=== PATIENT | male | born 1955 | race Caucasian/White ===

== ENCOUNTER 2018-02-10 05:51 | Day surgery (SDC) | payer BC ==
--- NOTE | 2018-01-30 08:28 | HP ---
PREOPERATIVE HISTORY AND PHYSICAL: DATE OF ADMISSION/SURGERY: 02/10/18 DATE OF OFFICE VISIT: 01/26/18 ATTENDING SURGEON: Masoud Vincent MD * (DICTATED BY SYLVAIN LEBLANC) PROCEDURE: Left shoulder MRI under anesthesia. CHIEF COMPLAINT: Left shoulder pain. HISTORY OF PRESENT ILLNESS: Castro is a 62-year-old male who presents to the clinic for left shoulder pain. There is a concern for rotator cuff triple repair and the patient requires an MRI; however, he is claustrophobic and is unable to have an MRI with valium. Therefore, he requires an MRI under anesthesia of the left shoulder that will be performed on 02/10/18. PAST MEDICAL HISTORY: Hypertension, gout, arthritis. PAST SURGICAL HISTORY: Three shoulder surgeries between the 2 shoulders, 3 carpal tunnel surgeries, 1 wrist surgery, 2 hand surgeries, tonsillectomy. The patient denies prior complications with anesthesia. MEDICATIONS: 1. . 2. Allopurinol 100 mg 1 by mouth every day. 3. Amlodipine besylate 5 mg every day. 4. Tumeric 1 by mouth every day. 5. Vitamin D 1000 units twice daily. 6. Aspirin 81 mg 1 by mouth daily. 7. Fish oil 1200 mg 1 twice daily. 8. Multivitamin 1 daily. 9. Naproxen 500 mg 1 by mouth with food twice daily. 10. Alfuzosin 10 mg daily. 11. Lisinopril/hydrochlorothiazide 20/25 one by mouth every day. FAMILY HISTORY: Positive for diabetes and cancer. SOCIAL HISTORY: He lives with his spouse. He drives a school bus. He quit smoking 33 years ago, he is a former. He reports occasional alcohol consumption. He is right-hand dominant. REVIEW OF SYSTEMS: A 14-point review of systems was reviewed with the patient. Positive for current complaint, otherwise negative. He denies fever, chills, dyspnea, shortness of breath, history of DVT or PE, history of bleeding disorder. He does not have a spinal stimulator or a pacemaker. PHYSICAL EXAMINATION GENERAL: A 62-year-old well-developed, well-nourished male, in no acute distress. Alert and oriented x3. Appropriate mood and affect. Appropriate balance and coordination of all 4 extremities. VITAL SIGNS: Height 72, weight 327, pulse 74, blood pressure 136/78, respiratory rate 12, BMI 44.3. HEENT: Normocephalic, atraumatic. PERRLA. Throat clear. NECK: Supple. PULMONARY: Lungs are clear to auscultation bilaterally. No wheezing, rhonchi, or rales. CARDIO: Regular rate and rhythm. S1, S2. No murmurs, gallops, or rubs. No edema. ABDOMEN: Positive bowel sounds. Soft, nontender. NEURO: Alert and oriented x3. Cranial nerves grossly intact. Sensation is intact to light touch distally. MUSCULOSKELETAL: Left upper extremity, skin is intact. Forward flexion to 150 , abduction to 140, external rotation to 30, internal rotation to T12. +5/5 strength to rotator cuff testing with pain. Positive impingement, [place]eds, [place]Carl[place], [place]. +2 radial pulse. Sensation is intact to light touch distally. DIAGNOSTIC STUDIES: Multi-view x-rays of the left shoulder reveals advanced glenohumeral [id number] arthritis. IMPRESSION AND PLAN: The patient is scheduled to undergo a left shoulder MRI under anesthesia because he is not able to have an MRI with valium. He is too claustrophobic and has severe anxiety. The MRI is to rule out a rotator cuff injury. He is scheduled to have this on 02/10/18 and will follow up with Dr. Vincent after the MRI to review results and treatment options. SYLVAIN LEBLANC [id number]/[facility] [place] #: [id number] JLUIS
[~2018-02-10 05:51] MED LIST: Buffered Lidocaine 0.9% SYRIN* 5 ML/SYR SYRINGE INTRADERM ONE
[2018-02-10] MEDS ORDERED: Dexamethasone IV* 4 MG/ML 1 ML (4 MG) IV SLOW PU ONE (06:00)
[2018-02-10] MEDS ORDERED: Famotidine IV* 10 MG/ML 2 ML (20 mg) IV ONE (06:00)
[2018-02-10] MEDS ORDERED: Midazolam* 1 MG/ML 2 ML VIAL (2 MG) ONE (06:22)
[2018-02-10] MEDS ORDERED: fentaNYL* 50 MCG/ML 2 ML VIAL (100 MCG VIAL) ONE (06:22)
[2018-02-10] MEDS ORDERED: Dexamethasone IV* 4 MG/ML 1 ML (4 MG) ONE (06:36)
[2018-02-10] MEDS ORDERED: Famotidine IV* 10 MG/ML 2 ML (20 mg) ONE (06:36)
[2018-02-10] MEDS ORDERED: Ondansetron INJ* 2 MG/ML VIAL IV PRN (07:56)
[2018-02-10] MEDS ORDERED: DiMENhydriNATE IV* 50 MG/ML VIAL IV PUSH PRN (07:56)
[2018-02-10] MEDS ORDERED: Naloxone* 0.4 MG/ML 1 ML VIAL IV PRN (07:56)
[2018-02-10 07:57] VITALS: BP 149/88
[2018-02-10] MEDS ORDERED: Propofol* 10 MG/ML 20 ML BTL IV PUSH ONE ×2 (07:59)
[2018-02-10] MEDS ORDERED: Phenylephrine INJ* 10 MG/ML 1 ML VIAL (10 MG) ONE (07:59)
[2018-02-10] MEDS ORDERED: Succinylcholine* 20 MG/ML 10 ML VIAL ONE (07:59)
--- NOTE | 2018-02-10 09:47 | RAD ---
INDICATION: Left shoulder pain, osteoarthritis. Imaging sequences: Coronal proton density, T2, fat-sat T2 weighted images of the shoulder were obtained. Sagittal T1, T2 fat sat images of the shoulder were obtained. Axial proton density fat sat images were also obtained. The supraspinatus muscle and tendon demonstrate thickening and mild increased signal consistent with tendinosis. Focus area of increased signal is noted at the insertion of the supraspinatus tendon consistent with an intrasubstance tear at the footprint. Infraspinatus and subscapularis muscle and tendon are grossly intact. Moderate-sized joint effusion is noted. There are degenerative changes of the glenohumeral joint noted. Intra-articular loose bodies may be present. There may be fluid in the subcoracoid bursa. Fluid is present along the biceps tendon groove consistent with tenosynovitis. IMPRESSION: Degenerative changes of the glenohumeral joint. Osteophyte formation is noted. There is suggestion of some loose bodies noted within the joint space. A small joint effusion is noted. Tendinosis of the distal supraspinatus tendon. There may be an intrasubstance tear at the footprint of the supraspinatus tendon.
== END 2018-02-10 08:33 | disposition home or self-care (01) ==
LOC: OR 05:51
PROVIDERS: ATTEND Orthopaedic Surgery
DX: M19.012 Primary osteoarthritis, left shoulder (principal); F40.240 Claustrophobia; M25.512 Pain in left shoulder; I10 Essential (primary) hypertension; M10.9 Gout, unspecified; Z87.891 Personal history of nicotine dependence
CPT/HCPCS: J0330; J1100; J2250; J2704; J3010

== ENCOUNTER → 2018-08-07 06:46 | Day surgery (SDC) | payer BC ==
--- NOTE | 2018-08-06 20:54 | HP ---
PREOPERATIVE HISTORY AND PHYSICAL: DATE OF ADMISSION/SURGERY: 08/07/18 DATE OF OFFICE VISIT: 08/01/18 ATTENDING PROVIDER: Masoud Vincent MD * (DICTATED BY SYLVAIN LEBLANC) PROCEDURE: Left shoulder arthroscopic possible rotator cuff repair, decompression, debridement, and possible subpectoral biceps tenodesis. CHIEF COMPLAINT: Left shoulder pain. HISTORY OF PRESENT ILLNESS: Castro is a 63-year-old male who presents to the clinic for left shoulder pain due to a rotator cuff tear and biceps tendinitis. He has failed conservative measures and therefore agreed to undergo a left total shoulder arthroscopic possible rotator cuff repair, decompression, debridement, and possible subpectoral biceps tenodesis with Dr. Vincent on . PAST MEDICAL HISTORY: 1. Hypertension. 2. Gout. 3. Osteoarthritis. 4. Recent sinus infection. 5. Obstructive sleep apnea. 6. High cholesterol. PAST SURGICAL HISTORY: 1. Three shoulder surgeries between the bilateral shoulders. 2. Two carpal tunnel releases on the right and 1 on the left. 3. One left wrist surgery. 4. Cubital tunnel release. 5. Two tendon hand surgeries. 6. Tonsillectomy. 7. Vasectomy. The patient denies prior complications with anesthesia. MEDICATIONS: 1. Aspirin 81 mg 1 tab daily. 2. Fish oil 1200 mg 1 by mouth twice a day. 3. Vitamin D 1000 units twice a day. 4. Tumeric 1 a day. 5. Multivitamin 1 by mouth every day. 6. Alfuzosin 10 mg 1 daily. 7. Gabapentin 300 mg 1 tab twice a day. 8. Glucosamine/chondroitin 750/600 2 times a day. 9. Doxycycline 100 mg 1 every 12 hours. 10. Allopurinol 100 mg 1 by mouth every day. 11. Amlodipine 5 mg 1 by mouth every day. 12. Lisinopril/hydrochlorothiazide 20/25 1 tab by mouth every day. ALLERGIES: No known drug allergies. FAMILY HISTORY: Positive for diabetes and cancer. SOCIAL HISTORY: His lives with his spouse. He is a former smoker, quit in 1984. He drinks alcohol socially. He exercises occasionally. He is right-hand dominant. REVIEW OF SYSTEMS: A 14-point review of systems was reviewed with the patient. Positive for current complaint, otherwise negative. Denies fevers, chills, chest pain, shortness of breath, history of DVT or PE, history of bleeding disorder. PHYSICAL EXAMINATION GENERAL: A 63-year-old well-developed, well-nourished male, in no acute distress. VITAL SIGNS: Height 72, weight 310. Pulse 96, blood pressure 158/78, respiratory rate 16, temperature 98.0. BMI of 42.0. HEENT: Normocephalic, atraumatic. PERRLA. Throat: Clear. NECK: Supple. PULMONARY: Lungs are clear to auscultation bilaterally. No wheezing, rhonchi, or rales. CARDIO: Regular rate and rhythm. S1, S2. No murmurs, gallops, or rubs. No edema. ABDOMEN: Positive bowel sounds, soft, nontender. NEURO: Alert and oriented x3. Cranial nerves grossly intact. MUSCULOSKELETAL: Left upper extremity, skin is intact. No warmth or erythema. Tenderness over the biceps tendon. Forward flexion, abduction 170, external rotation 45, internal rotation to lumbar spine. Full range of motion . + 2 radial pulse. Sensation is intact to light touch distally. Right upper extremity, skin is intact. No warmth or erythema. Nontender to palpation. Full range of motion. Neurovascularly intact. DIAGNOSTIC STUDIES: MRI of the left shoulder revealed no full thickness tear of the rotator cuff, but there may be some partial thickness tearing, fluid around the biceps and significant osteoarthritis. IMPRESSION: Left shoulder partial rotator cuff tear, biceps tendinitis, and glenohumeral joint osteoarthritis. PLAN: The patient is scheduled to undergo a left shoulder arthroscopic possible rotator cuff repair, decompression, debridement, and possible subpectoral biceps tenodesis with Dr. Vincent on 08/07/18. Percocet will be used for postop pain management. He will follow up 10 to 14 days postop for followup and suture removal. SYLVAIN LEBLANC [id number]/[facility] #: [id number] MTDD
[~2018-08-07 06:46] MED LIST changes: +Acetaminophen TAB* 325 MG ONE; +Acetaminophen TAB* 325 MG PO ONE; +Acetaminophen TAB* 325 MG PO PRN; -Buffered Lidocaine 0.9% SYRIN* 5 ML/SYR SYRINGE INTRADERM ONE; +Buffered Lidocaine 1% SYRIN* 1 ML/SYRINGE INTRADERM ONE; +Bupivacaine 0.25% SDV* 30 ML ONE; +Dexamethasone IV* 4 MG/ML 1 ML (4 MG) IV SLOW PU ONE; +Dexamethasone IV* 4 MG/ML 1 ML (4 MG) ONE; +DiMENhydriNATE IV* 50 MG/ML VIAL IV PUSH PRN; +DiMENhydriNATE IV* 50 MG/ML VIAL ONE; +EPHEDrine (Pressors)* 50 MG/ML VIAL ONE; +Famotidine IV* 10 MG/ML 2 ML (20 mg) ONE; +Famotidine TAB* 20 MG ONE; +Famotidine TAB* 20 MG PO ONE; +Gabapentin CAP(*) 300 MG ONE; +Gabapentin CAP(*) 300 MG PO ONE; +Ketorolac INJ* 30 MG/ML 1 ML VIAL IV PRN; +Lactated Ringers 1000 ML Bag* 1,000 ML IV SCH; +Lidocaine 1%* 5 ML VIAL ONE; +Midazolam* 1 MG/ML 2 ML VIAL (2 MG) ONE; +Naloxone* 0.4 MG/ML 1 ML VIAL IV PRN; +Ondansetron INJ* 2 MG/ML VIAL IV ONE; +Ondansetron INJ* 2 MG/ML VIAL ONE; +PROCHLORPERAZINE INJ 5 MG/ML 2 ML VIAL ONE; +Propofol* 10 MG/ML 20 ML BTL ONE; +ROPIVACAINE 5 MG/ML 30 ML BTL (0.5%) ONE; +Rocuronium* 10 MG/ML VIAL ONE; +Scopolamine 1.5 mg* PATCH ONE; +Scopolamine 1.5 mg* PATCH TRANSDERM SCH; +Succinylcholine* 20 MG/ML 10 ML VIAL ONE; +ceFAZolin 2 GM in NS PREMIX(*) 2 GM/100 ML BAG IVPB ONE; +ceFAZolin VIAL(*) VIAL ONE; +celeCOXIB CAP* 100 MG ONE; +celeCOXIB CAP* 200 MG PO ONE; +fentaNYL* 50 MCG/ML 2 ML VIAL (100 MCG VIAL) IV PRN; +fentaNYL* 50 MCG/ML 2 ML VIAL (100 MCG VIAL) ONE; +oxyCODONE/Acetamin 5/325 MG* TAB PO PRN
[2018-08-07 15:14] VITALS: BP 138/78
--- NOTE | 2018-08-08 02:41 | OP ---
DATE OF OPERATION: 08/07/18 - [facility] DATE OF : 57 SURGEON: Masoud Vincent MD. ASSISTANTS: 1. SYLVAIN Chandra. An habilitation assistant was needed for the entirety of the case for positioning, retraction, and utilized throughout all portions of the case. 2. SHERINE Roque student. PRE-OP DIAGNOSIS: Left shoulder osteoarthritis with bicipital tendonitis. POST-OP DIAGNOSES: 1. Left shoulder osteoarthritis with bicipital tendonitis. 2. Loose body and partial thickness tear of the rotator cuff. OPERATIVE PROCEDURE: Left shoulder arthroscopy with: 1. Extensive glenohumeral debridement. 2. Subacromial decompression with acromioplasty. 3. Rotator cuff repair using Regeneten patch. 4. Removal of loose body 1 cm in length. 5. Open biceps tenodesis. COMPLICATIONS: None. ESTIMATED BLOOD LOSS: Minimal. IMPLANTS USED: One [employer] Q-Fix 2.8 mm and 1 medium size Regeneten patch. INDICATIONS: Castro Ibrahim is a 63-year-old male with osteoarthritis of his shoulder. He has failed conservative management. We talked about the options including total shoulder. He does have a partial thickness tear of the rotator cuff, which is where lot of his pain is coming from. It is important thus to have normal rotator cuff prior to proceeding with any surgical treatment. He does know that he is going to have a replacement, but we have discussed different options such as arthroscopy with debridement and evaluation of rotator cuff as well as biceps tenodesis. He is elected to proceed with surgical treatment. He underwent medical risk pre-optimization and was stabilized for surgery. After risks and benefits were discussed at length including but not limited to bleeding, infection, damage to nerves, vessels, surrounding structures, wound nonhealing, persistent pain, need for further surgery, scarring, stiffness, incomplete relief of symptoms, risks of anesthesia , risk of DVT. He is elected to proceed with surgical treatment. DESCRIPTION OF PROCEDURE: The patient was greeted in the preoperative area by the attending surgeon. Correct extremity was marked and consent was confirmed. The patient underwent interscalene nerve block by the anesthesiologist after which he was placed brought back to the operating suite, where he was placed in the right lateral decubitus position. All bony prominences were padded. He was secured with pegboard. An axillary roll was placed. The left arm was draped unsterile with 10 pounds of traction. The left shoulder was then prepped and draped in the usual sterile fashion beginning with chlorhexidine soap, scrub, and alcohol wipe and a final prep of ChloraPrep. After appropriate surgical pause indicating site, side, procedure, and administration of antibiotics, the standard postero-lateral portal was made sharply with 11 blade. The scope was introduced into the joint. The joint was examined. There were grade 4 changes of the glenohumeral joint. There was unstable fraying of the anterior, posterior, and superior labrum. The biceps obviously was subluxed and torn. It was then tenotomized after the anterior canal was made. Shaver was used to debride the anterior, posterior, and superior labrum. There was a loose body trapped with the biceps and taken down with the biceps tendon and later determined in the open portion of the case. The undersurface of the rotator cuff had partial thickness tearing. The subscap was found to be intact. Once the debridement was completed, attention was directed to the subacromial space. With the scope positioned in the subacromial space, the lateral portal was made in an outside-in fashion. Shaver was used to debride back the abundant bursa that was present. The undersurface of the acromion was skeletonized and then a 4 -0 oval indu was used to do an acromioplasty. All loose fluid debris was removed at this point. Attention was then directed to the cuff. The dorsal side of the cuff was looked to be intact. There was no evidence of full thickness tearing. Incision was made because he is a candidate for shoulder replacement and the cuff was not perfect, we had to do a Regeneten patch to allow for healing of the rotator cuff. The size medium patch was then brought to the field and then placed under arthroscopic visualization. It was then secured with tendon jerri medially and then bone jerri laterally, after which it was checked for range of motion and was found to be well secured. After this portion was completed, attention was directed to the biceps. The bed was air planed to the left side. The anterior aspect of the shoulder was prepped again and a 15 blade was used to make an incision. The soft tissues were carefully dissected to expose the pec fascia. Once the remainder of resection was done bluntly, the soft tissues were carefully dissected to expose the biceps groove. The biceps was brought through the wound. A loose body was removed approximately 1 cm in diameter. The bicipital groove was prepared in the usual fashion with electrocautery device, red ball rasp, and osteotome. The Q-Fix drill guide was then drilled unicortically and Q-Fix was deployed with excellent purchase. The sutures were then passed through the tendon approximately 1 cm proximal to the musculotendinous junction in Guzman-Parker type configuration. Excess stump was excised and the biceps shuttled back to the wound. It was then secured. The wounds were copiously irrigated with sterile saline. The skin was closed in layers with 3-0 Monocryl. The portal closed with 3-0 nylon. Sterile dressings were applied. A Cryo/Cuff and UltraSling were applied. He was awoken from anesthesia, transferred to PACU in stable condition. POSTOPERATIVE PLAN: Throughout the case, he had PVCs, but was found to be stable. We will CC a copy to his Pricing Manager as well as his PCP so they could follow this up. The anesthesiologist was also going to send a note. He will be discharged on pain medication, antibiotics. DVT prophylaxis considered but deferred due to no previous personal or family history. I will see the patient back in 10 to 14 days. [id number]/[facility] #: [id number] JLUIS
== END | disposition home or self-care (01) ==
LOC: OREAST 06:46
PROVIDERS: ATTEND Orthopaedic Surgery
DX: M19.012 Primary osteoarthritis, left shoulder (principal); M75.22 Bicipital tendinitis, left shoulder; M75.112 Incomplete rotator cuff tear or rupture of left shoulder, not specified as traumatic; M24.012 Loose body in left shoulder; G89.18 Other acute postprocedural pain; I10 Essential (primary) hypertension; M10.9 Gout, unspecified; M19.90 Unspecified osteoarthritis, unspecified site; G47.33 Obstructive sleep apnea (adult) (pediatric); E78.00 Pure hypercholesterolemia, unspecified; Z87.891 Personal history of nicotine dependence
CPT/HCPCS: A9270-GY; C1713; C1776; J0330; J0690; J0780; J1100; J1240; J2250; J2405; J2704; J2795; J3010

== ENCOUNTER → 2018-08-07 14:49 | Day surgery (SDC) | payer BC ==
[2015-05-13 13:13] VITALS: BP 145/74
--- NOTE | 2015-05-14 07:42 | OP ---
OPERATIVE REPORT: DATE OF OPERATION: 05/13/15 - PAMELA DATE OF : 57 SURGEON: Raul Hartley MD PUGGER HELPER: None. ANESTHESIA: General. PRE-OP DIAGNOSIS: Nasal airway obstruction secondary to bilateral inferior turbinate hypertrophy. POST-OP DIAGNOSIS: Nasal airway obstruction secondary to bilateral inferior turbinate hypertrophy. OPERATIVE PROCEDURE: Bilateral outfracture and cautery of the inferior turbinate. INDICATIONS: This is a 60-year-old male who utilizes CPAP, but has problems with chronic nasal airway obstruction refractory to medical management. The decision was made based on his anatomy to proceed with bilateral outfracture and cautery of the inferior turbinates to improve his nasal airway. EBL: Negligible. DESCRIPTION OF PROCEDURE: On 05/13/15, the patient was brought to the operating room. IV access was obtained. The patient was then induced and intubated with an LMA. The patient was draped and a time-out was performed. The nasal cavities had been previously decongested with Afrin. The inferior turbinates were then infiltrated with approximately 2 cc of 1% lidocaine with epinephrine. Each turbinates were then infractured, 4 to 5 passes were made through each turbinate utilizing the [employer] bipolar device at a setting of 4. The turbinates were then outfractured. Pledgets soaked with lidocaine with epinephrine were placed into both sides of the nasal cavity to assist with hemostasis. The patient then returned to the care of the anesthesiologist. The pledgets were removed. The patient was allowed to arise from anesthesia, extubated, and delivered to PACU in stable condition. [id number]/[facility] #: [id number] [facility]
[~2018-08-07 14:49] MED LIST changes: -Acetaminophen TAB* 325 MG ONE; -Acetaminophen TAB* 325 MG PO ONE; -Acetaminophen TAB* 325 MG PO PRN; +Buffered Lidocaine 1% SYR 3ML* 3 ML/SYR SYRINGE INJ ONE; -Buffered Lidocaine 1% SYRIN* 1 ML/SYRINGE INTRADERM ONE; -Bupivacaine 0.25% SDV* 30 ML ONE; -Dexamethasone IV* 4 MG/ML 1 ML (4 MG) IV SLOW PU ONE; -Dexamethasone IV* 4 MG/ML 1 ML (4 MG) ONE; -DiMENhydriNATE IV* 50 MG/ML VIAL IV PUSH PRN; -DiMENhydriNATE IV* 50 MG/ML VIAL ONE; -EPHEDrine (Pressors)* 50 MG/ML VIAL ONE; -Famotidine IV* 10 MG/ML 2 ML (20 mg) ONE; -Famotidine TAB* 20 MG ONE; -Famotidine TAB* 20 MG PO ONE; -Gabapentin CAP(*) 300 MG ONE; -Gabapentin CAP(*) 300 MG PO ONE; -Ketorolac INJ* 30 MG/ML 1 ML VIAL IV PRN; -Lactated Ringers 1000 ML Bag* 1,000 ML IV SCH; +Lidocain 1% EPI 1:100,000 * 30 ML MDV ONE; -Lidocaine 1%* 5 ML VIAL ONE; -Naloxone* 0.4 MG/ML 1 ML VIAL IV PRN; -Ondansetron INJ* 2 MG/ML VIAL IV ONE; +Oxymetazoline 0.05% NASAL SPR* 15 ML BTL ONE; -PROCHLORPERAZINE INJ 5 MG/ML 2 ML VIAL ONE; -Propofol* 10 MG/ML 20 ML BTL ONE; -ROPIVACAINE 5 MG/ML 30 ML BTL (0.5%) ONE; -Rocuronium* 10 MG/ML VIAL ONE; -Scopolamine 1.5 mg* PATCH ONE; -Scopolamine 1.5 mg* PATCH TRANSDERM SCH; -Succinylcholine* 20 MG/ML 10 ML VIAL ONE; -ceFAZolin 2 GM in NS PREMIX(*) 2 GM/100 ML BAG IVPB ONE; -ceFAZolin VIAL(*) VIAL ONE; -celeCOXIB CAP* 100 MG ONE; -celeCOXIB CAP* 200 MG PO ONE; -fentaNYL* 50 MCG/ML 2 ML VIAL (100 MCG VIAL) IV PRN; -oxyCODONE/Acetamin 5/325 MG* TAB PO PRN
== END | disposition home or self-care (01) ==
LOC: OREAST 05-13 09:30
PROVIDERS: ATTEND Otolaryngology
DX: J34.3 Hypertrophy of nasal turbinates (principal); G47.33 Obstructive sleep apnea (adult) (pediatric); I10 Essential (primary) hypertension; E66.01 Morbid (severe) obesity due to excess calories
CPT/HCPCS: A9270-GY; J2250; J2405; J3010

== ENCOUNTER 2022-05-24 07:30 | Observation (INO) ==
[2022-06-14] MEDS ORDERED: Buffered Lidocaine 1% SYRIN 1 ml INTRADERM ONE (06:00)
[2022-06-14] MEDS ORDERED: Lactated Ringers 1000 ml BAG 1,000 ML IV SCH (06:00)
[2022-06-14] MEDS ORDERED: ceFAZolin *3* GM in NS PREMIX 3 GM/100 ML BAG IV ONE (06:11)
[2022-06-14] MEDS ORDERED: fentaNYL 100 mcg/2 ml 50 MCG/ML VIAL ONE ×3 (07:19→13:29)
[2022-06-14] MEDS ORDERED: Propofol 10 MG/ML 20 ML BTL ONE (07:19)
[2022-06-14] MEDS ORDERED: Rocuronium 50 mg VIAL 10 mg/ml 5 ml VIAL (50 mg) ONE ×4 (07:19→10:32)
[2022-06-14] MEDS ORDERED: Lidocaine 2% PF 5 ML VIAL ONE ×2 (07:19→11:03)
[2022-06-14] MEDS ORDERED: Bupivacaine 0.5% SDV PF 30ML VIAL ONE (07:21)
[2022-06-14] MEDS ORDERED: Scopolamine 1 mg/72hr PATCH ONE (08:27)
[2022-06-14] MEDS ORDERED: Vancomycin 1,000 MG VIAL ONE (08:33)
[2022-06-14] MEDS ORDERED: Dexamethasone IV 4 MG/ML VIAL 1 ml VIAL ONE (08:46)
[2022-06-14] MEDS ORDERED: Ondansetron 4 mg VIAL 2 MG/ML 2 ml VIAL ONE (08:46)
[2022-06-14] MEDS ORDERED: Sugammadex 500 MG/5 ML 5 ml VIAL IV PUSH ONE (10:33)
[2022-06-14] MEDS ORDERED: Magnesium Hydroxide LIQ 30 ML UDC PO PRN (12:49)
[2022-06-14] MEDS ORDERED: Lactulose 30 ml UDC PO PRN (12:49)
[2022-06-14] MEDS ORDERED: Ondansetron 4 mg VIAL 2 MG/ML 2 ml VIAL IV PRN (12:49)
[2022-06-14] MEDS ORDERED: Morphine 2 MG/ML SYRINGE IV PRN (12:49)
[2022-06-14] MEDS ORDERED: Ondansetron ODT 4 mg TAB 4 MG TAB PO PRN (12:49)
[2022-06-14] MEDS ORDERED: Naloxone 0.4 mg VIAL 0.4 mg/ml 1 ml VIAL IV PRN (13:19)
[2022-06-14] MEDS: fentaNYL 100 mcg/2 ml 50 MCG/ML VIAL IV PRN ×2 (13:30→13:51)
[2022-06-14] MEDS: Lactated Ringers 1000 ml BAG 1,000 ML IV SCH (15:45)
[2022-06-14] MEDS: ceFAZolin 1 GM ADVAN 1 GM in NS 0.9% 50 ML 50 ML IVPB SCH (15:46)
[2022-06-14] MEDS: Magnesium Hydroxide LIQ 30 ML UDC PO SCH (20:00)
[2022-06-14] MEDS: Fluticasone NASAL SPRAY 50MCG 16 gm SPRAY BTL INTRANASAL SCH (20:11)
[2022-06-14] MEDS ORDERED: CMCS: Alfuzosin ER 10 mg TAB.ER (NF) 10 MG TAB.ER PO SCH (21:00)
[2022-06-15] MEDS: ceFAZolin 1 GM ADVAN 1 GM in NS 0.9% 50 ML 50 ML IVPB SCH ×2 (00:44→09:03)
[2022-06-15] MEDS: Lactated Ringers 1000 ml BAG 1,000 ML IV SCH (02:07)
[2022-06-15 05:47] LABS: Hematocrit 34 % (42-52); Hemoglobin 11.4 g/dL (14.0-18.0); Mean Platelet Volume 8.1 fL (7.4-10.4); Platelet Count 228 10^3/uL (150-450)
[2022-06-15 06:07] LABS: Calcium 8.3 mg/dL (8.6-10.3); Creatinine, Serum 0.84 mg/dL (0.67-1.17); eGFR CKD-EPI 96.2 (>60)
[2022-06-15] MEDS ORDERED: Lisinopril/HCTZ 20/25 TAB (NF) PO SCH (09:00)
[2022-06-15] MEDS ORDERED: Vitamin THERAPEUTIC TAB PO SCH (09:00)
[2022-06-15] MEDS: Magnesium Hydroxide LIQ 30 ML UDC PO SCH (09:01)
[2022-06-15] MEDS: Fluticasone NASAL SPRAY 50MCG 16 gm SPRAY BTL INTRANASAL SCH (09:02)
[2022-06-15 11:10] VITALS: BP 104/68
== END 2022-06-15 15:20 | disposition home or self-care (01) ==
LOC: INTOOBSV 06-14 05:48 → AA 06-14 05:48 → SSU 06-14 15:15
PROVIDERS: ADMIT Orthopaedic Surgery; ATTEND Orthopaedic Surgery

== ENCOUNTER 2023-05-23 07:30 | Observation (INO) ==
[2023-06-13] MEDS ORDERED: Lactated Ringers 1000 ml BAG 1,000 ML IV SCH (06:00)
[2023-06-13] MEDS ORDERED: Buffered Lidocaine 1% SYRIN 1 ml INTRADERM ONE (06:00)
[2023-06-13] MEDS ORDERED: ceFAZolin *3* GM in NS PREMIX 3 GM/100 ML BAG IV ONE (06:13)
[2023-06-13 06:26] LABS: Rapid COVID-19 Molecular Undetected (Undetected)
[2023-06-13] MEDS ORDERED: Midazolam 2 mg/2 ml VIAL 1 mg/ml 2 ml VIAL (2 mg) ONE (07:03)
[2023-06-13] MEDS ORDERED: ROPIVACAINE 5 MG/ML 30 ML BTL (0.5%) ONE (07:15)
[2023-06-13] MEDS ORDERED: Rocuronium 50 mg VIAL 10 mg/ml 5 ml VIAL (50 mg) ONE ×2 (07:29→08:00)
[2023-06-13] MEDS ORDERED: fentaNYL 100 mcg/2 ml 50 MCG/ML VIAL ONE (07:30)
[2023-06-13] MEDS ORDERED: Propofol 10 MG/ML 20 ML BTL ONE ×3 (07:31→11:55)
[2023-06-13] MEDS ORDERED: Lidocaine 2% PF 5 ML VIAL ONE ×2 (07:31→11:54)
[2023-06-13] MEDS ORDERED: Vancomycin 1,000 MG VIAL ONE (07:32)
[2023-06-13] MEDS ORDERED: Scopolamine 1 mg/72hr PATCH ONE (07:38)
[2023-06-13] MEDS ORDERED: Acetaminophen IV 1 GM/100ML 1,000 MG/100 ML BAG IV PRN (08:18)
[2023-06-13] MEDS ORDERED: Naloxone 0.4 mg VIAL 0.4 mg/ml 1 ml VIAL IV PRN (08:18)
[2023-06-13] MEDS ORDERED: HYDROmorphone 1 MG/1 ML SYRINGE IV PRN (08:18)
[2023-06-13] MEDS ORDERED: fentaNYL 100 mcg/2 ml 50 MCG/ML VIAL IV PRN (08:18)
[2023-06-13] MEDS ORDERED: Ondansetron 4 mg VIAL 2 MG/ML 2 ml VIAL IV PRN ×2 (08:18→12:15)
[2023-06-13] MEDS ORDERED: Dexamethasone IV 4 MG/ML VIAL 1 ml VIAL ONE (08:32)
[2023-06-13] MEDS ORDERED: Phenylephrine IV 10 MG/ML 1 ml VIAL ONE (09:21)
[2023-06-13] MEDS ORDERED: Sodium Chloride 0.9% 10 ML ONE (09:30)
[2023-06-13] MEDS ORDERED: Acetaminophen IV 1 GM/100ML 1,000 MG/100 ML BAG IV ONE (11:42)
[2023-06-13] MEDS ORDERED: Ondansetron 4 mg VIAL 2 MG/ML 2 ml VIAL ONE (11:51)
[2023-06-13] MEDS ORDERED: Ondansetron ODT 4 mg TAB 4 MG TAB PO PRN (12:15)
[2023-06-13] MEDS ORDERED: Lactulose 30 ml UDC PO PRN (12:15)
[2023-06-13] MEDS ORDERED: Morphine 2 MG/ML SYRINGE IV PRN (12:15)
[2023-06-13] MEDS ORDERED: Magnesium Hydroxide LIQ 30 ML UDC PO PRN (12:15)
[2023-06-13] MEDS: Lactated Ringers 1000 ml BAG 1,000 ML IV SCH ×2 (13:21→23:53)
[2023-06-13] MEDS: ceFAZolin 1 GM ADVAN 1 GM in NS 0.9% 50 ML 50 ML IVPB SCH (16:20)
[2023-06-13] MEDS ORDERED: CMCS: Alfuzosin ER 10 mg TAB.ER (NF) 10 MG TAB.ER PO SCH (21:00)
[2023-06-13] MEDS: Magnesium Hydroxide LIQ 30 ML UDC PO SCH (21:18)
[2023-06-14] MEDS: ceFAZolin 1 GM ADVAN 1 GM in NS 0.9% 50 ML 50 ML IVPB SCH ×2 (00:29→09:35)
[2023-06-14 06:09] LABS: Platelet Count 247 10^3/uL (150-450)
[2023-06-14 06:22] LABS: Hematocrit 34.2 % (38-53); Hemoglobin 11.6 g/dL (13.2-16.3); Mean Platelet Volume 7.3 fL (7.5-11.2)
[2023-06-14 06:47] LABS: Calcium 8.5 mg/dL (8.6-10.3); Creatinine, Serum 0.75 mg/dL (0.67-1.17); eGFR CKD-EPI 98.9 (>60)
[2023-06-14] MEDS ORDERED: Sodium Phosphate ADULT ENEMA 133 ML BTL PR ONE (08:27)
[2023-06-14] MEDS ORDERED: Lisinopril/HCTZ 20/25 TAB (NF) PO SCH ×2 (09:00)
[2023-06-14] MEDS ORDERED: Vitamin THERAPEUTIC TAB PO SCH (09:00)
[2023-06-14] MEDS: Magnesium Hydroxide LIQ 30 ML UDC PO SCH (09:43)
[2023-06-14 09:57] VITALS: BP 115/63
== END 2023-06-14 13:15 | disposition home or self-care (01) ==
LOC: INTOOBSV 06-13 05:45 → AA 06-13 05:45 → SSU 06-13 12:15
PROVIDERS: ADMIT Orthopaedic Surgery; ATTEND Orthopaedic Surgery

== ENCOUNTER 2024-02-11 23:54 | Observation (INO) ==
[2024-02-12] MEDS ORDERED: Vancomycin 2,000 MG in NS 0.9% 250 ml 250 ML IVPB SCH (01:00)
[2024-02-12] MEDS: Piperacillin/Tazobac 3.375 BAG 3.375 GM/100 ML BAG IV ONE (01:25)
[2024-02-12] MEDS: LACTATED RINGERS IV ONE (01:25)
[2024-02-12 01:27] LABS: ABS Basophils 0.1 10^3/uL (0.0-0.1); ABS Eosinophils 0.1 10^3/uL (0.0-0.5); ABS Lymphocytes 1.2 10^3/uL (1.0-4.8); ABS Monocytes 1.2 10^3/uL (0.0-1.1); Eosinophil % 0.9 %; Hematocrit 37.8 % (38-53); Hemoglobin 13.2 g/dL (13.2-16.3); Mean Corpuscular Hemoglobin 30.3 pg (27-33); Mean Corpuscular Hgb Conc 34.9 g/dL (31-36); Mean Platelet Volume 7.5 fL (7.5-11.2); Platelet Count 258 10^3/uL (150-450); Red Blood Count 4.35 10^6/uL (4.06-5.63); Red Cell Distribution Width 13.1 % (12-17); White Blood Count 10.6 10^3/uL (3.6-10.2)
[2024-02-12 01:35] LABS: Activated Partial Thrombo Time 30.3 seconds (26.0-38.0); INR 1.26 (0.85-1.14)
[2024-02-12] MEDS: Vancomycin 2,000 MG in NS 0.9% 500 ml BAG 500 ML IVPB ONE (02:09)
[2024-02-12 02:19] LABS: Albumin 3.8 g/dL (3.2-5.2); Albumin/Globulin Ratio 1.5 (1-3); C Reactive Protein 204.27 mg/L (<8.01); Calcium 8.3 mg/dL (8.6-10.3); Creatinine, Serum 0.75 mg/dL (0.67-1.17); Globulin 2.6 g/dL (2-4); Potassium 3.7 mmol/L (3.5-5.0); Total Bilirubin 0.9 mg/dL (0.2-1.0); Total Protein 6.4 g/dL (6.4-8.9); eGFR CKD-EPI 98.9 (>60)
[2024-02-12 02:46] LABS: High Sensitivity Troponin 1 Hr 24 pg/mL (<20)
[2024-02-12] MEDS: Albuterol/Ipratropium NEB.SOL (2.5/0.5 MG) 3 ML NEB.SOLN INH ONE (03:17)
[2024-02-12 05:13] LABS: Urine Appearance Clear; Urine Bilirubin Negative (Negative); Urine Blood 1+ (Negative); Urine Color Yellow; Urine Glucose Negative (Negative); Urine Ketones Negative (Negative); Urine Nitrite Negative (Negative); Urine Protein 1+ (>=30 mg/dL) (Negative); Urine Specific Gravity 1.027 (1.002-1.030); Urine Urobilinogen Negative (Negative)
[2024-02-12 05:17] LABS: Urine Bacteria Absent /HPF (Absent); Urine Red Blood Cell 1+(3-5/hpf) /HPF (0-Trace); Urine Squamous Epithelial Cell Present /HPF (Absent); Urine White Blood Cell Trace(0-5/hpf) /HPF (0-Trace)
[2024-02-12 05:26] LABS: High Sensitivity Troponin 3 Hr 23 pg/mL (<20)
[2024-02-12] MEDS ORDERED: Ondansetron 4 mg VIAL 2 MG/ML 2 ml VIAL IV PRN (06:30)
[2024-02-12] MEDS: ZOSYN 3.375 GM Q8H per EXTENDED INFUSION IV SCH ×2 (06:36→14:44)
[2024-02-12] MEDS ORDERED: Zosyn per Pharmacy NOTE FOLLOW UP SCH (07:00)
[2024-02-12] MEDS ORDERED: Lisinopril/HCTZ 20/25 TAB (NF) PO SCH (09:00)
[2024-02-12] MEDS: Vitamin THERAPEUTIC TAB PO SCH (09:23)
[2024-02-12] MEDS: Fluticasone NASAL SPRAY 50MCG 16 gm SPRAY BTL INTRANASAL SCH (10:30)
[2024-02-12] MEDS: CMCS:OMEGA-3 FATTY ACID 1000 mg(NF) PO SCH (10:31)
[2024-02-12] MEDS: Coenzyme Q10 CAP (NF) ** 100 MG PO SCH (10:34)
[2024-02-12] MEDS: Albuterol/Ipratropium NEB.SOL (2.5/0.5 MG) 3 ML NEB.SOLN INH PRN (12:51)
[2024-02-12] MEDS: Enoxaparin 40 MG/0.4 ML SYR SUBCUT SCH (13:18)
[2024-02-12] MEDS: Cholecalciferol (VIT D3) 1,000 unit TAB PO SCH (20:52)
[2024-02-12] MEDS: CMCS:Alfuzosin ER 10 mg TAB.ER (NF) 10 MG TAB.ER PO SCH (20:52)
[2024-02-13 06:48] LABS: ABS Basophils 0.1 10^3/uL (0.0-0.1); ABS Eosinophils 0.1 10^3/uL (0.0-0.5); ABS Lymphocytes 1.3 10^3/uL (1.0-4.8); ABS Neutrophils 8.7 10^3/uL (1.5-7.6); Eosinophil % 0.8 %; Hematocrit 35.6 % (38-53); Mean Corpuscular Hemoglobin 29.4 pg (27-33); Mean Corpuscular Hgb Conc 33.8 g/dL (31-36); Mean Corpuscular Volume 86.9 fL (80-97); Mean Platelet Volume 7.8 fL (7.5-11.2); Platelet Count 268 10^3/uL (150-450); Red Cell Distribution Width 13.4 % (12-17); White Blood Count 11.2 10^3/uL (3.6-10.2)
[2024-02-13 07:06] LABS: Albumin 3.5 g/dL (3.2-5.2); Albumin/Globulin Ratio 1.4 (1-3); Calcium 8.1 mg/dL (8.6-10.3); Creatinine, Serum 0.71 mg/dL (0.67-1.17); Globulin 2.5 g/dL (2-4); Potassium 3.5 mmol/L (3.5-5.0); Total Bilirubin 0.9 mg/dL (0.2-1.0); eGFR CKD-EPI 100.6 (>60)
[2024-02-13] MEDS: Calcium Carb (TUMS) 500 mg CHEW TAB PO PRN (12:57)
[2024-02-14 09:34] VITALS: BP 133/71
== END 2024-02-14 14:30 | disposition home or self-care (01) ==
LOC: EDHOLD 23:54 → ED 23:54 → SUATTDRO 02-12 06:29 → MEDTELE 02-12 07:44
PROVIDERS: ADMIT Internal Medicine; ATTEND Hospitalist